=== PATIENT | female | born 1970 | race Hispanic/Latino ===

== ENCOUNTER 2020-02-24 10:33 | Outpatient (CLI) | payer OTHER ==
--- NOTE | 2020-02-24 12:31 | ULT ---
ABDOMINAL ULTRASOUND: INDICATION: Abdominal pain and epigastric pain. FINDINGS: The gallbladder has a normal sonographic appearance. No evidence of gallstones. Negative Ortiz's s ign is described. Common bile duct normal. Visualized aorta and IVC unremarkable. Visualized pancreas unremarkable. Liver and spleen unremarkable. Both kidneys are imaged and appear normal size without hydronephrosis. There is a tiny echogenic foc us in the left renal cortex which could represent tiny calculus measuring in the 5 mm range. IMPRESSION: Unremarkable abdominal ultrasound. POS: [facility]
== END 2020-02-24 10:34 | disposition home or self-care (01) ==
LOC: BICULT 10:33
PROVIDERS: ATTEND Internal Medicine Gastroenterology
DX: K64.9 Unspecified hemorrhoids (principal); R10.13 Epigastric pain; R19.7 Diarrhea, unspecified; M06.9 Rheumatoid arthritis, unspecified; R49.0 Dysphonia
CPT/HCPCS: 93975

== ENCOUNTER 2023-01-22 14:59 | Outpatient (CLI) | payer BC, OTHER | END 2023-01-22 15:00 | disposition home or self-care (01) | LOC: BICRAD 14:59 | PROVIDERS: ATTEND Nurse Practitioner Family | DX: R10.11 Right upper quadrant pain (principal) | CPT/HCPCS: 74018 ==

== ENCOUNTER 2023-01-25 08:14 | Outpatient (CLI) | payer BC, OTHER | END 2023-01-25 08:15 | disposition home or self-care (01) | LOC: BICRAD 08:14 | PROVIDERS: ATTEND Nurse Practitioner Family | DX: R10.11 Right upper quadrant pain (principal) | CPT/HCPCS: 74018 ==

== ENCOUNTER 2024-02-20 13:32 | Outpatient (CLI) | payer MEDICARE, BC ==
[2024-02-20] MEDS ORDERED: Bacteriostatic Normal Saline 30 ML VIAL ONE (15:19)
[2024-02-20] MEDS ORDERED: Sterile Water 10 ML ONE (15:19)
[2024-02-20] MEDS ORDERED: Sincalide 5 MCG VIAL ONE (15:19)
== END 2024-02-20 13:33 | disposition home or self-care (01) ==
LOC: NM 13:32
PROVIDERS: ATTEND Internal Medicine Gastroenterology
DX: R10.11 Right upper quadrant pain (principal)
CPT/HCPCS: 78227; A9537; J2805